=== PATIENT | male | born 1975 | race Caucasian/White ===

== ENCOUNTER → 2021-09-08 | Outpatient (CLI) | payer BC ==
[~2021-09-08] MED LIST: SODIUM CHLORIDE 0.9% 50 ML IVPB ONE; SODIUM CHLORIDE 0.9% 500 ML 500 ML in EMPTY BAG 1 BAG IV PRN; SOTROVIMAB (EUA) 500 MG in SODIUM CHLORIDE 0.9% 100 ML IVPB ONE
[2021-09-08 15:23] VITALS: BP 146/81; PULSE 100; RESP 18; TEMP 97.8
== END ==
LOC: PROCWHC3 13:41
PROVIDERS: ATTEND Family Medicine
DX: U07.1 COVID-19 (principal); E66.9 Obesity, unspecified; Z68.41 Body mass index [BMI] 40.0-44.9, adult; Z91.09 Other allergy status, other than to drugs and biological substances; Z91.018 Allergy to other foods
CPT/HCPCS: 96360; Q0247; M0247